=== PATIENT | female | born 1965 | race Caucasian/White ===

== ENCOUNTER 2021-08-12 10:00 | Emergency (ER) | payer OTHER ==
[2021-08-12 10:36] LABS: HEMOGLOBIN 15.7 gm/dl (12.3-15.3); RED BLOOD COUNT 5.22 M/UL (4.00-5.10); WHITE BLOOD COUNT 8.4 K/UL (4.5-11.0)
[2021-08-12 10:57] LABS: BUN/CREATININE RATIO 21 (0-10)
[2021-08-12] MEDS ORDERED: MECLIZINE HCL12.5 MG PO (12:23)
== END 2021-08-12 12:38 | disposition home or self-care (01) ==
LOC: ER1 10:00
PROVIDERS: Nurse Practitioner
DX: R06.02 Shortness of breath (principal); R42 Dizziness and giddiness; Z20.822 Contact with and (suspected) exposure to COVID-19
CPT/HCPCS: 0240U; 70450; 71045; 80053; 81001; 82550; 82553; 84484; 85025; 85379; 93005; 99285

== ENCOUNTER 2021-10-21 16:53 | Emergency (ER) | payer SELFPAY ==
[~2021-10-21 16:53] MED LIST: MECLIZINE HCL12.5 MG PO
[2021-10-21] MEDS ORDERED: MEDROL DOSEPAK 24 MG PO (20:35)
[2021-10-21] MEDS ORDERED: ATROVENT-HFA12.9 GM INH (20:35)
[2021-10-21] MEDS ORDERED: DELSYM30 MG/5 ML PO (20:35)
[2021-10-21] MEDS ORDERED: ZOFRAN 4 MG TAB4 MG PO (20:35)
== END 2021-10-21 20:45 | disposition home or self-care (01) ==
LOC: ER1 16:53
DX: U07.1 COVID-19 (principal)
CPT/HCPCS: 0240U; 71046; 81001; 87081; 87880; 96361; 96374; 96375; 99283; J1885; J2405